=== PATIENT | male | born 1970 | race Caucasian/White ===

== ENCOUNTER 2021-05-01 11:32 | Emergency (ER) | payer SELFPAY ==
[~2021-05-01] VITALS: Ht 180.3 cm; Wt 113.4 kg
[2021-05-01] MEDS ORDERED: cloNIDine HCL 0.1 MG TAB PO ONE (12:30)
[2021-05-01] MEDS ORDERED: HYDROcodone-ACET 10/325MG TAB PO ONE (12:45)
[2021-05-01] MEDS ORDERED: LOSA100T25 PO (14:00)
[2021-05-01] MEDS ORDERED: HYDR-4902 PO ×2 (14:00→15:08)
[2021-05-01 14:54] VITALS: BP 140/105
== END 2021-05-01 15:28 | disposition home or self-care (01) ==
LOC: ER 11:32
DX: M54.59 Other low back pain (principal); I16.0 Hypertensive urgency; V43.52XA Car driver injured in collision with other type car in traffic accident, initial encounter; Y93.89 Activity, other specified; Y92.410 Unspecified street and highway as the place of occurrence of the external cause; Y99.8 Other external cause status
CPT/HCPCS: 72131